=== PATIENT | female | born 1975 | race Caucasian/White ===

== ENCOUNTER 2019-02-05 13:34 | Emergency (ER) | payer OTHER ==
[2019-02-05 13:42] VITALS: TEMP 98.8
[2019-02-05] MEDS ORDERED: ONDANSETRON 4 MG/2 ML VIAL IVP STA (13:51)
[2019-02-05] MEDS ORDERED: SODIUM CHLORIDE 0.9% 1,000 ML IV STA (13:51)
--- NOTE | 2019-02-05 13:52 | ED ---
General Adult HPI - General Source: patient, EMS, RN notes reviewed Mode of arrival: EMS Limitations: no limitations <Chapincito Duenas - Last Filed: 02/05/19 16:46> <Bill Cleaning - Last Filed: 02/05/19 21:33> - General Chief complaint: Abdominal Pain Stated complaint: Abd Pain Time Seen by Provider: 02/05/19 13:51 - History of Present Illness Initial comments: 43-year-old female with a past medical history of Crohn's disease, diverticulitis, pancreatitis, alcoholic cirrhosis, borderline personality disorder presents to the emergency department for abdominal pain. This started this morning. Patient is also having nausea and vomiting. Patient states bowel movements are normal. Denies diarrhea. Patient is currently at [place] for heroin and alcohol. Denies any fevers or chills. states this pain feels like a cramping pain and only Ativan helps with her pain. Patient has no other complaints at this time including shortness of breath, chest pain, headache, or visual changes. (Chapincito Duenas) - Related Data Home Medications Medication Instructions Recorded Confirmed Acetaminophen Tab [Tylenol Tab] 650 mg PO Q4H PRN 02/05/19 02/05/19 Chlorpheniramine Maleate 4 mg PO Q4H PRN 02/05/19 02/05/19 [Chlor-Trimeton] Escitalopram [Lexapro] 5 mg PO DAILY@0602/05/19 02/05/19 Ibuprofen [Motrin] 600 mg PO Q6H PRN 02/05/19 02/05/19 Multivitamins, Thera [Multivitamin 1 tab PO DAILY 02/05/19 02/05/19 (formulary)] Nicotine 21Mg/24Hr Patch [Habitrol] 1 patch TRANSDERM DAILY@0630 02/05/19 02/05/19 Omeprazole [PriLOSEC] 20 mg PO DAILY@0600 02/05/19 02/05/19 Thiamine [Vitamin B-1] 100 mg PO DAILY 02/05/19 02/05/19 guaiFENesin SYRUP 100MG/5ML 200 mg PO Q4H PRN 02/05/19 02/05/19 [Robitussin] Previous Rx's Medication Instructions Recorded Pantoprazole Sodium [Protonix] 20 mg PO DAILY #14 tablet. 02/05/19 Allergies Allergy/AdvReac Type Severity Reaction Status Date / Time bee venom protein (honey bee) Allergy Unknown Verified 02/05/19 18:49 lithium [[place]] Allergy Unknown Verified 02/05/19 18:49 Review of Systems ROS Other: All systems not noted in ROS Statement are negative. <Chapincito Duenas - Last Filed: 02/05/19 16:46> ROS Other: All systems not noted in ROS Statement are negative. <Bill Cleaning - Last Filed: 02/05/19 21:33> ROS Statement: Those systems with pertinent positive or pertinent negative responses have been documented in the HPI. Past Medical History Additional Past Medical History / Comment(s): border line personality disorder. Pancreatitis, Diverticulitis, Alcoholic Cirrhosis, Crohn's Disease History of Any Multi-Drug Resistant Organisms: None Reported Past Surgical History: Appendectomy, Bowel Resection Smoking Status: Current every day smoker Past Alcohol Use History: None Reported Past Drug Use History: Heroin, Marijuana <Chapincito Duenas - Last Filed: 02/05/19 16:46> General Exam Limitations: no limitations General appearance: alert, in no apparent distress Head exam: Present: atraumatic, normocephalic, normal inspection <Chapincito Duenas - Last Filed: 02/05/19 16:46> Course <Chapincito Duenas - Last Filed: 02/05/19 16:46> <Bill Cleaning - Last Filed: 02/05/19 21:33> Vital Signs 02/05/19 02/05/19 02/05/19 13:37 15:44 18:32 Temperature 98.8 F Pulse Rate 64 60 71 Respiratory 18 16 18 Rate Blood Pressure 133/84 123/90 133/91 O2 Sat by Pulse 98 99 100 Oximetry - Reevaluation(s) Reevaluation #1: 02/05/19 16:48 Report is stuck and dictated mode. I have called CT multiple times. They are working on report. (Chapincito Duenas) Reevaluation #2: 02/05/19 19:22 I did personally examine the patient she is had pain since 3 AM this morning the epigastrium. She's had episodes nausea vomiting. She is reported to have self-induced vomiting as per staff witnessing these events. Lab work is unremarkable x-rays/CAT scan shows evidence of possible hemorrhagic cyst on the right ultrasound shows similar findings however flow could not be verified due to pain. On examination the patient is not tender on exam in the suprapubic right or left lower quadrant area. It is strictly epigastric. He does states she's had pain like this before with her gastritis and with her ulcers. A trial of further medication will be given. The exam is consistent with gastritis/epigastric pain. (Bill Cleaning) Medical Decision Making - Lab Data Result diagrams: 02/05/19 14:00 02/05/19 14:00 <Chapincito Duenas - Last Filed: 02/05/19 16:46> - Lab Data Result diagrams: 02/05/19 14:00 02/05/19 14:00 <Bill Cleaning - Last Filed: 02/05/19 21:33> - Medical Decision Making Age was endorsed to me at shift change pending ultrasound. Ultrasound showed evidence of a hemorrhagic cyst the differential does include torsion due to the inability vascular evaluation patient has no clinical indicators for this. She did interrogate complete resolution of her pain after medications were rendered. She will be discharged. The presentation is consistent with gastritis. (Bill Cleaning) - Lab Data Lab Results 02/05/19 02/05/19 02/05/19 Range/Units 14:00 14:00 14:00 WBC 14.5 H (3.8-10.6) k/uL RBC 4.81 (3.80-5.40) m/uL Hgb 14.5 (11.4-16.0) gm/dL Hct 43.4 (34.0-46.0) % MCV 90.3 (80.0-100.0) fL MCH 30.2 (25.0-35.0) pg MCHC 33.5 (31.0-37.0) g/dL RDW 15.6 H (11.5-15.5) % Plt Count 318 (150-450) k/uL Neutrophils % 79 % Lymphocytes % 14 % Monocytes % 4 % Eosinophils % 1 % Basophils % 0 % Neutrophils # 11.5 H (1.3-7.7) k/uL Lymphocytes # 2.1 (1.0-4.8) k/uL Monocytes # 0.5 (0-1.0) k/uL Eosinophils # 0.2 (0-0.7) k/uL Basophils # 0.1 (0-0.2) k/uL Sodium 143 (137-145) mmol/L Potassium 4.1 (3.5-5.1) mmol/L Chloride 108 H (98-107) mmol/L Carbon Dioxide 21 L (22-30) mmol/L Anion Gap 14 mmol/L BUN 14 (7-17) mg/dL Creatinine 0.88 (0.52-1.04) mg/dL Est GFR (CKD-EPI)AfAm >90 (>60 ml/min/1.73 sqM) Est GFR (CKD-EPI)NonAf 82 (>60 ml/min/1.73 sqM) Glucose 125 H (74-99) mg/dL Calcium 10.3 H (8.4-10.2) mg/dL Magnesium 2.1 (1.6-2.3) mg/dL Total Bilirubin 0.7 (0.2-1.3) mg/dL AST 27 (14-36) U/L ALT 15 (9-52) U/L Alkaline Phosphatase 107 (38-126) U/L Total Protein 8.1 (6.3-8.2) g/dL Albumin 4.7 (3.5-5.0) g/dL Amylase 89 (30-110) U/L Lipase 146 (23-300) U/L Urine Color Urine Appearance (Clear) Urine pH (5.0-8.0) Ur Specific [place] (1.001-1.035) Urine Protein (Negative) Urine Glucose (UA) (Negative) Urine Ketones (Negative) Urine Blood (Negative) Urine Nitrite (Negative) Urine Bilirubin (Negative) Urine Urobilinogen (<2.0) mg/dL Ur Leukocyte Esterase (Negative) Urine RBC (0-5) /hpf Urine WBC (0-5) /hpf Ur Squamous Epith Cells (0-4) /hpf Urine Bacteria (None) /hpf Urine Mucus (None) /hpf Urine HCG, Qual Not Detected (Not Detectd) 02/05/19 Range/Units 14:00 WBC (3.8-10.6) k/uL RBC (3.80-5.40) m/uL Hgb (11.4-16.0) gm/dL Hct (34.0-46.0) % MCV (80.0-100.0) fL MCH (25.0-35.0) pg MCHC (31.0-37.0) g/dL RDW (11.5-15.5) % Plt Count (150-450) k/uL Neutrophils % % Lymphocytes % % Monocytes % % Eosinophils % % Basophils % % Neutrophils # (1.3-7.7) k/uL Lymphocytes # (1.0-4.8) k/uL Monocytes # (0-1.0) k/uL Eosinophils # (0-0.7) k/uL Basophils # (0-0.2) k/uL Sodium (137-145) mmol/L Potassium (3.5-5.1) mmol/L Chloride (98-107) mmol/L Carbon Dioxide (22-30) mmol/L Anion Gap mmol/L BUN (7-17) mg/dL Creatinine (0.52-1.04) mg/dL Est GFR (CKD-EPI)AfAm (>60 ml/min/1.73 sqM) Est GFR (CKD-EPI)NonAf (>60 ml/min/1.73 sqM) Glucose (74-99) mg/dL Calcium (8.4-10.2) mg/dL Magnesium (1.6-2.3) mg/dL Total Bilirubin (0.2-1.3) mg/dL AST (14-36) U/L ALT (9-52) U/L Alkaline Phosphatase (38-126) U/L Total Protein (6.3-8.2) g/dL Albumin (3.5-5.0) g/dL Amylase (30-110) U/L Lipase (23-300) U/L Urine Color Yellow Urine Appearance Clear (Clear) Urine pH 6.0 (5.0-8.0) Ur Specific [place] 1.028 (1.001-1.035) Urine Protein Trace H (Negative) Urine Glucose (UA) Negative (Negative) Urine Ketones Trace H (Negative) Urine Blood Negative (Negative) Urine Nitrite Negative (Negative) Urine Bilirubin Negative (Negative) Urine Urobilinogen <2.0 (<2.0) mg/dL Ur Leukocyte Esterase Moderate H (Negative) Urine RBC 3 (0-5) /hpf Urine WBC 1 (0-5) /hpf Ur Squamous Epith Cells 1 (0-4) /hpf Urine Bacteria Rare H (None) /hpf Urine Mucus Few H (None) /hpf Urine HCG, Qual (Not Detectd) Disposition <Chapincito Duenas - Last Filed: 02/05/19 16:46> Is patient prescribed a controlled substance at d/c from ED?: No <Bill Cleaning - Last Filed: 02/05/19 21:33> Clinical Impression: Acute gastritis, Abdominal pain Disposition: HOME SELF-CARE Condition: Good Instructions (If sedation given, give patient instructions): Abdominal Pain (ED), Gastritis (ED) Prescriptions: Pantoprazole Sodium [Protonix] 20 mg PO DAILY #14 tablet.dr Referrals: None,Stated [Primary Care Provider] - 1-2 days
[2019-02-05 14:20] LABS: Basophils # (A) 0.1 k/uL (0-0.2); Basophils % (A) 0 %; Eosinophils # (A) 0.2 k/uL (0-0.7); Eosinophils % (A) 1 %; HCT 43.4 % (34.0-46.0); HGB 14.5 gm/dL (11.4-16.0); Lymphocytes # (A) 2.1 k/uL (1.0-4.8); Lymphocytes % (A) 14 %; MCH 30.2 pg (25.0-35.0); MCHC 33.5 g/dL (31.0-37.0); MCV 90.3 fL (80.0-100.0); Mean Platelet Volume 6.8; Monocytes # (A) 0.5 k/uL (0-1.0); Monocytes % (A) 4 %; Neutrophils # (A) 11.5 k/uL (1.3-7.7); Neutrophils % (A) 79 %; Platelet Count 318 k/uL (150-450); RBC 4.81 m/uL (3.80-5.40); RDW 15.6 % (11.5-15.5); WBC 14.5 k/uL (3.8-10.6)
[2019-02-05 14:26] LABS: ALT 15 U/L (9-52); AST 27 U/L (14-36); African American GFR (CKD) >90 (>60 ml/min/1.73 sqM); Albumin 4.7 g/dL (3.5-5.0); Alkaline Phosphatase 107 U/L (38-126); Amylase 89 U/L (30-110); Anion Gap 14 mmol/L; Blood Urea Nitrogen 14 mg/dL (7-17); Calcium 10.3 mg/dL (8.4-10.2); Carbon Dioxide 21 mmol/L (22-30); Chloride 108 mmol/L (98-107); Glucose 125 mg/dL (74-99); Magnesium 2.1 mg/dL (1.6-2.3); Potassium 4.1 mmol/L (3.5-5.1); Sodium 143 mmol/L (137-145); Total Bilirubin 0.7 mg/dL (0.2-1.3); Total Protein 8.1 g/dL (6.3-8.2)
[2019-02-05 14:29] LABS: Appearance,Urine Clear (Clear); Bacteria,Urine Rare /hpf; Bilirubin,Urine Negative (Negative); Blood,Urine Negative (Negative); Color,Urine Yellow; Glucose,Urine (UA) Negative (Negative); Ketones,Urine Trace (Negative); Leukocyte Esterase,Urine Moderate (Negative); Mucus,Urine Few /hpf; Nitrite,Urine Negative (Negative); Protein,Urine Trace (Negative); RBC,Urine 3 /hpf (0-5); Specific Gravity,Urine 1.028 (1.001-1.035); Squamous Epithelial Cell,Urine 1 /hpf (0-4); Urobilinogen,Urine <2.0 mg/dL (<2.0); WBC,Urine 1 /hpf (0-5)
[2019-02-05] MEDS ORDERED: KETOROLAC 30 MG/ML 1 ML VIAL IVP STA (14:32)
[2019-02-05] MEDS ORDERED: METOCLOPRAMIDE 5 MG/ML 2 ML VIAL IVP STA ×2 (15:20→16:59)
[2019-02-05] MEDS ORDERED: diphenhydrAMINE 50 MG/ML 1 ML VIAL IVP STA (15:21)
[2019-02-05] MEDS ORDERED: DICYCLOMINE 10 MG/ML 2 ML AMP IM STA (15:49)
[2019-02-05] MEDS ORDERED: FAMOTIDINE 20 MG/2 ML VIAL IV STA (17:00)
[2019-02-05 18:33] VITALS: BP 133/91; PULSE 71; RESP 18
[2019-02-05] MEDS ORDERED: LORazepam 2 MG/ML INJ IV STA ×2 (19:21→21:03)
[2019-02-05] MEDS ORDERED: HALOPERIDOL LACTATE 5 MG/ML 1 ML VIAL IVP STA (19:21)
[2019-02-05] MEDS ORDERED: MAG HYDROX/AL HYDROX/SIMETH 30 ML, HYOSCYAMINE ELIXIR 10 ML, CIMETIDINE HCL 300 MG, LID... PO STA ×4 (19:21)
--- NOTE | 2019-02-05 21:51 | US ---
EXAMINATION TYPE: US transvaginal DATE OF EXAM: 02/05/2019 COMPARISON: NONE CLINICAL HISTORY: Pain, CT finding. Right pelvic pain, N/V, recent CT, irregular cycles TECHNIQUE: Transvaginal ER exam Date of LMP: 4 months ago EXAM MEASUREMENTS: Uterus: 5.9 x 2.9 x 3.0 cm Endometrial Stripe: 0.3 cm Right Ovary: 4.5 x 3.4 x 4.3 cm Left Ovary: not seen Difficult and limited study due to patient in a lot of pain, vomiting during exam, constantly movin g and fidgeting 1. Uterus: Retroverted 2. Endometrium: Appears within normal limits measuring 3 mm in width. 3. Right Ovary: Enlarged measuring 4.5 x 3.4 x 4.3 cm (volume 34.8 mL). The ovary is predominantly h ypoechoic with strands of internal reticulation visualized. Vascular flow could not be obtained due t o pain. 4. Left Ovary: Not seen 5. Bilateral Adnexa: Within normal limits 6. Posterior cul-de-sac: Within normal limits Cervical nabothian cysts noted incidentally. IMPRESSION: Enlarged right ovary with morphologic changes favoring hemorrhagic cyst however blood flow could not be obtained due to patient discomfort therefore torsion cannot necessarily be excluded and should be correlated clinically.
--- NOTE | 2019-02-05 21:51 | CT ---
EXAMINATION TYPE: CT abdomen pelvis wo con DATE OF EXAM: 02/05/2019 COMPARISON: [facility] 01/01/2014 HISTORY: epigastric pain, nausea, vomiting CT DLP: 767.8 mGycm Automated exposure control for dose reduction was used. TECHNIQUE: Helical acquisition of images was performed from the lung bases through the pelvis. No in travenous contrast. FINDINGS: The liver, spleen, pancreas, gallbladder, adrenal glands are within normal limits given noncontrast t echnique. No renal or ureteral calculi. No hydronephrosis. Decompressed urinary bladder. Retroverted uterus. Enlarged, high attenuating right ovary measuring approximately 3.8 x 3.7 x 6.2 cm (TR, AP, CC) with surrounding fat stranding. Normal CT appearance of left ovary. No sizable free flu id. No dilated bowel or free air. Appendix is not visualized and there are right lower quadrant clips adj acent to the cecum which may represent post appendectomy change. No osseous destructive lesion. Scattered benign bone islands. IMPRESSION: Enlarged right ovary with surrounding inflammatory change and internal hemorrhagic components. Differ ential considerations include hemorrhagic cyst, ovarian torsion, as well as ectopic . Correl ation with beta-hCG is recommended in addition to pelvic ultrasound.
== END 2019-02-05 21:53 | disposition home or self-care (01) ==
LOC: EC 13:34
DX: K29.00 Acute gastritis without bleeding (principal); F10.10 Alcohol abuse, uncomplicated; F11.10 Opioid abuse, uncomplicated; N83.201 Unspecified ovarian cyst, right side; F17.200 Nicotine dependence, unspecified, uncomplicated; Z88.8 Allergy status to other drugs, medicaments and biological substances; Z91.030 Bee allergy status; Z79.899 Other long term (current) drug therapy; Z87.19 Personal history of other diseases of the digestive system; Z90.49 Acquired absence of other specified parts of digestive tract
CPT/HCPCS: 36415; 80053; 82150; 83690; 83735; 85025; 81001; 81025; 87086; 76830; 74176; 99284; 96374; 96375 ×6; 96376 ×2; 96361 ×4; 96372; J2060; J1200; J0500; J1630; J2765; J2405; J1885

== ENCOUNTER 2019-02-06 16:30 | Observation (INO) | payer OTHER ==
[2019-02-06] MEDS ORDERED: NITROGLYCERIN SL TABS 0.4 MG TAB SUBLINGUAL STA (17:13)
[2019-02-06] MEDS ORDERED: SODIUM CHLORIDE 0.9% 1,000 ML IV STA (17:13)
[2019-02-06] MEDS ORDERED: ASPIRIN 81 MG PO STA (17:13)
--- NOTE | 2019-02-06 17:33 | ED ---
Chest Pain HPI <Bill Cleaning - Last Filed: 02/06/19 21:57> - General Source: patient, EMS Mode of arrival: EMS Limitations: no limitations <Gaurav Chandler - Last Filed: 02/06/19 22:11> - General Chief Complaint: Chest Pain Stated Complaint: Chest Pain Time Seen by Provider: 02/06/19 17:05 - History of Present Illness Initial Comments: Patient is a 43-year-old female presenting to emergency Department with a chief complaint chest pain. Patient reports a gradual onset of a dull substernal chest pain approximately one hour ago and does not radiate anywhere. Patient reports mild diaphoresis after the incident occurred but now feels cold. Patient does report mild lightheadedness but no dizziness. Vision also reports she feels generalized weakness. With no nausea or vomiting or diarrhea. Patient also reports epigastric pain but states that is due to her esophageal irritation caused by haital hernia. Patient denies taking medication to alleviate the symptoms. Patient is a smoker and does have a family history of cardiovascular disease. Patient does not have hypertension, hyperchol esterolemia, or other establish cardiovascular conditions. (Gaurav Chandler) - Related Data Home Medications Medication Instructions Recorded Confirmed Acetaminophen Tab [Tylenol Tab] 650 mg PO Q4H PRN 02/05/19 02/06/19 Chlorpheniramine Maleate 4 mg PO Q4H PRN 02/05/19 02/06/19 [Chlor-Trimeton] Escitalopram [Lexapro] 5 mg PO DAILY@59902/05/19 02/06/19 Ibuprofen [Motrin] 600 mg PO Q6H PRN 02/05/19 02/06/19 Multivitamins, Thera [Multivitamin 1 tab PO DAILY 02/05/19 02/06/19 (formulary)] Nicotine 21Mg/24Hr Patch [Habitrol] 1 patch TRANSDERM DAILY@62902/05/19 02/06/19 Omeprazole [PriLOSEC] 20 mg PO DAILY@59902/05/19 02/06/19 Thiamine [Vitamin B-1] 100 mg PO DAILY 02/05/19 02/06/19 guaiFENesin SYRUP 100MG/5ML 200 mg PO Q4H PRN 02/05/19 02/06/19 [Robitussin] Calcium/Magnesium/Zinc 2 tab PO TID 02/06/19 02/06/19 [Jmxtdro-Nkthenitt-Urgn Tablet] Mirtazapine [Remeron] 15 mg PO HS 02/06/19 02/06/19 Mylanta 30 ml PO Q4H PRN 02/06/19 02/06/19 Ondansetron HCl [Zofran] 8 mg PO Q6H PRN 02/06/19 02/06/19 Ondansetron [Zofran] 4 mg IM Q6H PRN 02/06/19 02/06/19 Tigan 200mg 200 mg IM Q6H PRN 02/06/19 02/06/19 Tigan 300mg Suppo 300 mg RECTAL Q6H PRN 02/06/19 02/06/19 Trimethobenzamide [Tigan] 300 mg PO Q6H PRN 02/06/19 02/06/19 Allergies Allergy/AdvReac Type Severity Reaction Status Date / Time bee venom protein (honey bee) Allergy Unknown Verified 02/06/19 16:47 lithium [[place]] Allergy Unknown Verified 02/06/19 16:47 Review of Systems ROS Other: All systems not noted in ROS Statement are negative. <Bill Cleaning - Last Filed: 02/06/19 21:57> ROS Other: All systems not noted in ROS Statement are negative. <Gaurav Chandler - Last Filed: 02/06/19 22:11> ROS Statement: Those systems with pertinent positive or pertinent negative responses have been documented in the HPI. EKG Findings - EKG Comments: EKG Findings:: Normal sinus rhythm, right axis deviation. Particular a 61, W[place] interval 132, QRS duration 96, QT/QTc 434, 436,P-R-T axes 66 131 43 <Gaurav Chandler - Last Filed: 02/06/19 22:11> Past Medical History Additional Past Medical History / Comment(s): border line personality disorder. Pancreatitis, Diverticulitis, Alcoholic Cirrhosis, Crohn's Disease History of Any Multi-Drug Resistant Organisms: None Reported Past Surgical History: Appendectomy, Bowel Resection Past Psychological History: No Psychological Hx Reported Smoking Status: Current every day smoker Past Alcohol Use History: None Reported Past Drug Use History: Heroin, Marijuana <Gaurav Chandler - Last Filed: 02/06/19 22:11> General Exam Limitations: no limitations General appearance: alert, in no apparent distress Head exam: Present: atraumatic, normocephalic, normal inspection Eye exam: Present: normal appearance, PERRL, EOMI Pupils: Present: normal accommodation ENT exam: Present: normal exam, mucous membranes moist, normal external ear exam Neck exam: Present: normal inspection, full ROM. Absent: tenderness Respiratory exam: Present: normal lung sounds bilaterally. Absent: wheezes Cardiovascular Exam: Present: regular rate, normal rhythm, normal heart sounds GI/Abdominal exam: Present: soft, tenderness (Epigastric) Extremities exam: Present: normal inspection, full ROM Back exam: Present: normal inspection, full ROM Neurological exam: Present: alert, oriented X3 Psychiatric exam: Present: normal affect, normal mood Skin exam: Present: warm, intact, normal color <Gaurav Chandler - Last Filed: 02/06/19 22:11> Course <Bill Cleaning - Last Filed: 02/06/19 21:57> Vital Signs 02/06/19 02/06/19 02/06/19 16:33 17:25 18:24 Temperature 99 F Pulse Rate 63 74 Respiratory 16 18 32 H Rate Blood Pressure 148/95 116/97 O2 Sat by Pulse 98 97 Oximetry 02/06/19 19:26 Temperature Pulse Rate 64 Respiratory 18 Rate Blood Pressure 139/97 O2 Sat by Pulse 95 Oximetry - Reevaluation(s) Reevaluation #1: 02/06/19 21:57 PA supervision: I did review the case and did discuss the findings with the PA. Patient will be admitted I did discuss case with Dr. Prado. (Bill Cleaning) Chest Pain MDM - Core Measures AMI Core Measures Followed: No Cap Core Measures Followed: No - Differential Diagnosis AMI, ACS - [place] Criteria Clinical Symptoms of DVT: (0) No No Alternative Diagnosis: (0) No Immobilization of Surgery in Previous 4 Weeks: (0) No Previous DVT/PE: (0) No Hemoptysis: (0) No Malignancy: (0) No <Gaurav Chandler - Last Filed: 02/06/19 22:11> - [facility] Patient is a 43-year-old female presenting to emergency Department with a chief complaint of chest pain. Patient reports a gradual onset of pain approximately 1 hour prior to arrival. Patient reports the pain is substernal and does not radiate anywhere. Patient reports the pain is nonexertional she does report mild shortness of breath. Patient is a smoker and is currently undergoing a recovery treatment for alcohol and heroin abuse. Chest x-ray indicates atelectasis at the right lung base. EKG is unremarkable. Troponin is not mariano vated. CBC and CMP are unremarkable. Patient began to have a panic attack. Patient was also complaining of epigastric pain with states that is due to her hiatal hernia. Patient patient attempted self induced emesis. Patient was very loud in the emergency department. Patient was given 1 mg of Ativan initially and prior to admission to observation was given a second dose of Ativan. Patient reports improvement in her anxiety. Patient will be admitted for serial troponin. Patient has a heart score of 4. I counseled the patient for smoking cessation for greater than 3 minutes. Case discussed with Dr. Cleaning. Medical physician is Dr. Bonner. Cardiology consulted. (Gaurav Chandler) Disposition <Bill Cleaning - Last Filed: 02/06/19 21:57> Is patient prescribed a controlled substance at d/c from ED?: No Time of Disposition: 22:11 <Gaurav Chandler - Last Filed: 02/06/19 22:11> Clinical Impression: Chest pain Disposition: ADMITTED IP TO THIS HOSP Condition: Stable Instructions (If sedation given, give patient instructions): Chest Pain (ED) Additional Instructions: Patient will be admitted. Referrals: None,Stated [Primary Care Provider] - 1-2 days
[2019-02-06 17:44] LABS: Basophils % (A) 0 %; Eosinophils # (A) 0.1 k/uL (0-0.7); Eosinophils % (A) 1 %; HCT 42.2 % (34.0-46.0); Lymphocytes % (A) 24 %; MCHC 33.3 g/dL (31.0-37.0); Mean Platelet Volume 6.9; Monocytes # (A) 0.5 k/uL (0-1.0); Monocytes % (A) 6 %; Neutrophils # (A) 5.4 k/uL (1.3-7.7); Neutrophils % (A) 66 %; Platelet Count 283 k/uL (150-450); RBC 4.69 m/uL (3.80-5.40); RDW 15.9 % (11.5-15.5); WBC 8.1 k/uL (3.8-10.6)
[2019-02-06] MEDS ORDERED: DICYCLOMINE 10 MG/ML 2 ML AMP IM STA (17:49)
[2019-02-06 17:52] LABS: ALT 18 U/L (9-52); AST 38 U/L (14-36); African American GFR (CKD) >90 (>60 ml/min/1.73 sqM); Albumin 4.6 g/dL (3.5-5.0); Alkaline Phosphatase 101 U/L (38-126); Anion Gap 12 mmol/L; Blood Urea Nitrogen 13 mg/dL (7-17); Carbon Dioxide 21 mmol/L (22-30); Chloride 105 mmol/L (98-107); Glucose 111 mg/dL (74-99); Magnesium 2.2 mg/dL (1.6-2.3); Potassium 4.2 mmol/L (3.5-5.1); Sodium 138 mmol/L (137-145); Total Bilirubin 0.8 mg/dL (0.2-1.3); Total Protein 7.8 g/dL (6.3-8.2)
[2019-02-06 17:54] LABS: Partial Thromboplastin Time 24.4 sec (22.0-30.0); Prothrombin Time 10.5 sec (9.0-12.0)
[2019-02-06] MEDS ORDERED: LORazepam 2 MG/ML INJ IV STA ×2 (18:46→22:02)
[2019-02-06 19:27] VITALS: RESP 18
--- NOTE | 2019-02-06 19:39 | XR ---
EXAMINATION TYPE: XR chest 2V DATE OF EXAM: 02/06/2019 COMPARISON: None HISTORY: 43-year-old female with chest pain TECHNIQUE: AP and lateral views FINDINGS: The heart is normal size. Aorta and pulmonary vasculature within normal limits. Strandy atelectasis r ight base. No consolidation or pleural effusion otherwise seen. IMPRESSION: Right basilar strandy atelectasis. No acute process otherwise seen.
[2019-02-06] MEDS ORDERED: MAG HYDROX/AL HYDROX/SIMETH 30 ML, HYOSCYAMINE ELIXIR 10 ML, CIMETIDINE HCL 300 MG, LID... PO STA ×4 (20:33)
[2019-02-06] MEDS ORDERED: KETOROLAC 30 MG/ML 1 ML VIAL IVP PRN (21:58)
[2019-02-06] MEDS ORDERED: LORazepam 0.5 MG TAB PO PRN (21:58)
[2019-02-06] MEDS ORDERED: NALOXONE 0.4 MG/ML 1 ML VIAL IV PRN (21:58)
[2019-02-06] MEDS ORDERED: SODIUM CHLORIDE 0.9% 1,000 ML IV SCH (22:00)
[2019-02-06] MEDS ORDERED: LORazepam 1 MG TAB PO PRN (22:04)
[2019-02-06] MEDS ORDERED: MAG HYDROX/AL HYDROX/SIMETH 30 ML CUP PO PRN (22:25)
[2019-02-06] MEDS: PANTOPRAZOLE 40 MG/10 ML VIAL IVP SCH (23:14)
[2019-02-06 23:17] LABS: Amylase 74 U/L (30-110)
[2019-02-06] MEDS: MORPHINE SULFATE 4 MG/ML SYRINGE IV PRN (23:20)
[2019-02-06] MEDS ORDERED: TRIMETHOBENZAMIDE 300 MG CAP PO PRN (23:41)
--- NOTE | 2019-02-06 23:59 | P.HPIM ---
History of Present Illness H&P Date: 02/06/19 Chief Complaint: Chest pain and epigastric pain 43-year-old female with history of anxiety and panic disorder Patient presented to the hospital twice to the ED first and was complaining of abdominal pain this time was complaining of chest pain. Patient was abusive to staff and the ED very loud screaming and yelling. She reports that she has some epigastric pain and chest pain described as substernal dull pain nonradiating 9 out of 10 in severity burning in nature sometimes feels like epigastric in nature associated with nausea and vomiting at times with coffee ground material However at home this a.m. she hyperventilated and felt tingly and numb fell. Did not bump her head did not lose consciousness. She reports that her bowel movements have some red streaks denies any fissures but reports history of Crohn's disease. Otherwise denies any diaphoresis or shortness of breath In the ED initial workup was negative Patient admitted for atypical chest pain to rule out ACS patient has family history of premature CAD in her father patient is also a smoker however she's cutting back EKG in the ED showed normal sinus rhythm Review of Systems Pertinent positives as noted in HPI. All other systems were reviewed and are negative Past Medical History Additional Past Medical History / Comment(s): border line personality disorder. Pancreatitis, Diverticulitis, Alcoholic Cirrhosis, Crohn's Disease History of Any Multi-Drug Resistant Organisms: None Reported Past Surgical History: Appendectomy, Bowel Resection Past Psychological History: No Psychological Hx Reported Smoking Status: Current every day smoker Past Alcohol Use History: None Reported Past Drug Use History: Heroin, Marijuana - Past Family History Mother Family Medical History: No Reported History Father Additional Family Medical History / Comment(s): of suicide Medications and Allergies Home Medications Medication Instructions Recorded Confirmed Type Acetaminophen Tab [Tylenol Tab] 650 mg PO Q4H PRN 02/05/19 02/06/19 History Chlorpheniramine Maleate 4 mg PO Q4H PRN 02/05/19 02/06/19 History [Chlor-Trimeton] Escitalopram [Lexapro] 5 mg PO DAILY@0600 02/05/19 02/06/19 History Ibuprofen [Motrin] 600 mg PO Q6H PRN 02/05/19 02/06/19 History Multivitamins, Thera [Multivitamin 1 tab PO DAILY 02/05/19 02/06/19 History (formulary)] Nicotine 21Mg/24Hr Patch [Habitrol] 1 patch TRANSDERM DAILY@62902/05/1906/26 History Omeprazole [PriLOSEC] 20 mg PO DAILY@0600 02/05/19 02/06/19 History Thiamine [Vitamin B-1] 100 mg PO DAILY 02/05/19 02/06/19 History guaiFENesin SYRUP 100MG/5ML 200 mg PO Q4H PRN 02/05/19 02/06/19 History [Robitussin] Calcium/Magnesium/Zinc 2 tab PO TID 02/06/19 02/06/19 History [Nrqizhi-Tqhgxcxyl-Odpj Tablet] LORazepam [Ativan] 2 mg PO TID 02/06/19 02/06/19 History Mirtazapine [Remeron] 30 mg PO HS 02/06/19 02/06/19 History Mylanta 30 ml PO Q4H PRN 02/06/19 02/06/19 History Ondansetron HCl [Zofran] 8 mg PO Q6H PRN 02/06/19 02/06/19 History Ondansetron [Zofran] 4 mg IM Q6H PRN 02/06/19 02/06/19 History Tigan 200mg 200 mg IM Q6H PRN 02/06/19 02/06/19 History Tigan 300mg Suppo 300 mg RECTAL Q6H PRN 02/06/19 02/06/19 History Trimethobenzamide [Tigan] 300 mg PO Q6H PRN 02/06/19 02/06/19 History cloNIDine HCL [Catapres] 0.2 mg PO BID 02/06/19 02/06/19 History Allergies Allergy/AdvReac Type Severity Reaction Status Date / Time bee venom protein (honey bee) Allergy Unknown Verified 02/06/19 22:55 lithium [[place]] Allergy Unknown Verified 02/06/19 22:55 Physical Exam Vitals: Vital Signs Temp Pulse Resp BP Pulse Ox 02/06/19 19:26 64 18 139/97 95 02/06/19 18:24 74 32 H 116/97 97 02/06/19 17:25 18 02/06/19 16:33 99 F 63 16 148/95 98 Intake and Output 02/06/19 02/06/19 02/06/19 06:59 14:59 22:59 Other: Weight 86.183 kg Constitutional: No acute distress, conversant, pleasant, patient showed no vascular tumor she threw up with some coffee ground. Eyes: Anicteric sclerae, moist conjunctiva, no lid-lag Pupils equal round reactive to light ENMT: NC/AT Oropharynx clear, no erythema, exudates Neck: Supple, FROM, no masses, or JVD No carotid bruits No thyromegaly Lungs: Clear to auscultation Clear to percussion Normal respiratory effort, no accessory muscle use Cardiovascular: Heart regular in rate and rhythm, No murmurs, gallops, or rubs No peripheral edema Abdominal: Soft Tenderness to deep palpation and percussion of the epigastric region, no guarding, rebound or rigidity Abdomen moving with respiration Normoactive bowel sounds No hepatomegaly, No splenomegaly No palpable mass No abdominal wall hernia noted Skin: Normal temperature, tone, texture, turgor No induration No subcutaneous nodules No rash, lesions No ulcers Extremities: No digital cyanosis No clubbing Pedal pulses intact and symmetrical Radial pulses intact and symmetrical No calf tenderness Psychiatric: Alert and oriented to person, place and time Appropriate affect fair judgment Neuro Muscles Strength 5/5 in all 4 extremities Sensation to light touch grossly present throughout Cranial nerves II-XII grossly intact No focal sensory deficits Lymphatics: no palpable cervical or supraclavicular , or inguinal lymph nodes Results CBC & Chem 7: 02/06/19 17:20 02/06/19 17:20 Labs: Abnormal Lab Results - Last 24 Hours (Table) 02/06/19 02/06/19 Range/Units 17:20 17:20 RDW 15.9 H (11.5-15.5) % Carbon Dioxide 21 L (22-30) mmol/L Glucose 111 H (74-99) mg/dL AST 38 H (14-36) U/L Assessment and Plan Assessment: 43-year-old female with past medical history of panic disorder and anxiety peptic ulcer disease admitted under observation with anticipated length of stay less than 2 midnight for chest pain to rule out acute coronary syndrome Plan: Chest pain rule out acute coronary syndrome Age and given aspirin Pain control Trend troponins Cardiac monitoring Cardiac consult Initial EKG sinus rhythm Anxiety and panic disorder Continue Lexapro, patient reports noncompliance and has resumed the medication just 10 days ago Ativan when necessary History of peptic ulcer epigastric pain Protonix twice a day Monitor for any evidence of GI bleeding, and the ED patient's self-induced emesis per ER report however when she showed me the bassinet she had small amounts of dark coffee-ground material GI consult Lipase and amylase were negative DVT prophylaxis mechanical CODE STATUS full code Discussed with: Patient, ER, RN Anticipated length of stay less than than [address]: Home A total of 60 minutes was spent on the care of this complex patient more than 50% of the time was spent in counseling and care coordination.
[2019-02-07] MEDS: cloNIDine HCL 0.1 MG TAB PO SCH ×2 (00:58→10:28)
[2019-02-07] MEDS: LORazepam 1 MG TAB PO PRN ×3 (02:47→16:10)
[2019-02-07] MEDS: MORPHINE SULFATE 4 MG/ML SYRINGE IV PRN ×3 (02:47→10:33)
[2019-02-07] MEDS ORDERED: ESCITALOPRAM 5 MG TAB PO SCH (06:00)
[2019-02-07 07:17] VITALS: TEMP 98.1
[2019-02-07] MEDS: PANTOPRAZOLE 40 MG/10 ML VIAL IVP SCH (08:36)
[2019-02-07 10:31] VITALS: BP 108/70; PULSE 75
--- NOTE | 2019-02-07 12:08 | CONS ---
CONSULTATION REASON FOR CONSULTATION: Severe epigastric pain and chest pain. HISTORY OF PRESENT ILLNESS: The patient is a 43-year-old pleasant white female who came into the emergency room from [facility] complaining of severe epigastric pain associated with chest pain that started about 2 days ago. The patient has chronic epigastric pain of several years duration. In fact, she has been to a mercury purifier in [facility], had an upper endoscopy done early part of this year and was diagnosed with severe ulcerative esophagitis. Since then, she has been maintained on Protonix 40 mg daily and her symptoms are gradually improving. However, she still experiences epigastric discomfort almost on a daily basis, worse after eating, mostly burning in nature and occasionally very sharp and crampy in nature. She denies any nausea, vomiting, came to the emergency room. Cardiology was consulted. Cardiac workup so far has been negative. This morning she still has some pain, but feeling better on a clear liquid diet, tolerating well. She denies any rectal bleeding or melena. No recent weight loss. She does have prior history of peptic ulcer disease, but denies any recent NSAID use. Currently undergoing rehab at [facility] for the last 2 weeks for alcohol and intravenous drug use and she has been clean for 2 weeks. PAST MEDICAL HISTORY: Significant for anxiety depression, disorder, history of heavy alcoholism and gastroesophageal reflux disease. MEDICATIONS: At home include Tylenol, Motrin, Lexapro, multivitamin, Prilosec, vitamin B1, Ativan, Remeron, Zofran, Tigan, clonidine. ALLERGIES: To LITHIUM. SOCIAL HISTORY: Intravenous drug use for 10 years which she quit 2 weeks ago. Alcohol use as mentioned above. REVIEW OF SYSTEMS: CARDIOPULMONARY: No chest pain, shortness of breath. GENITOURINARY: No dysuria or hematuria. MUSCULOSKELETAL: Unremarkable. SKIN: Unremarkable. ENDOCRINE: Unremarkable. PSYCHIATRIC: Anxiety, depression. ENT/VISION: Unremarkable. CONSTITUTIONAL: No recent weight loss. No fever, chills, night sweats. PHYSICAL EXAMINATION: She appears comfortable, no apparent distress. Vital signs are stable. Blood pressure is 112/86, pulse is 61, temperature 98.2. HEENT: Examination unremarkable. conjunctivae pink. Sclerae anicteric. Oral cavity no lesions. NECK: No JVD or lymph node enlargement. CHEST: Clear to auscultation. HEART: Regular rate and rhythm. ABDOMEN: Soft. There is mild tenderness in the epigastric area. Bowel sounds are positive. No organomegaly. EXTREMITIES: No pedal edema. SKIN: No rashes. NEUROLOGIC: Alert and oriented x3. No focal deficits. CT of the abdomen and pelvis done 2 days ago during her earlier visit to the emergency room showed enlarged right ovary with surrounding inflammatory changes consistent with a hemorrhagic ovarian cyst, but otherwise the rest of the examination was unremarkable. IMPRESSION: Chronic epigastric pain of more than 10 years duration with worsening symptoms in the last 2 days associated with atypical chest pain. Cardiology evaluated the patient. No obvious cardiac etiology identified. She does have longstanding history of gastroesophageal reflux disease and had an upper endoscopy done by GI in [facility] earlier part of this year and was diagnosed with severe reflux esophagitis and since then has been maintained on Protonix 40 mg daily. Now has worsening symptoms and symptoms are more consistent with exacerbation of gastroesophageal reflux disease symptoms. Also has prior history of peptic ulcer disease. CT of the abdomen showed normal-appearing pancreas and liver as well as gallbladder. She does have one ovarian cyst noted. RECOMMENDATIONS: 1. Increase the Protonix to 40 mg twice daily. 2. Advance diet as tolerated. 3. No plans on any endoscopy intervention during this hospitalization. Thank you for this consultation. We will follow the patient closely during the hospital stay. She was advised to follow with her local GI following discharge from the hospital. PRAKASH / JAYJAY: [id number] /
--- NOTE | 2019-02-07 17:28 | P.DS ---
Providers Date of admission: 02/06/19 21:57 Expected date of discharge: 02/07/19 Attending physician: Ashutosh Bonner MD Consults: 02/06/19 21:58 Consult Physician Stat Consulting Provider: Mekhi Gutierrez Consult Reason/Comments: [place] Rule out Do you want consulting provider notified?: Yes 02/07/19 00:01 Consult Physician Routine Consulting Provider: Stanley Alarcon Consult Reason/Comments: coffee ground vomiting, peptic ulcer disease, Do you want consulting provider notified?: Yes, Notify in am Primary care physician: Stated None - Discharge Diagnosis(es) (1) Atypical chest pain Current Visit: Yes Status: Acute (2) GERD with esophagitis Current Visit: Yes Status: Acute (3) Abdominal pain Current Visit: No Status: Acute Hospital Course: Patient is a 43-year-old that was admitted for atypical chest pain after presenting with severe epigastric pain. Cardiac workup was negative although her troponins are negative at less than 0.012, EKG also showed sinus mechanism without any suggestion of acute ischemia. Patient had a history of GERD with severe ulcerative erosive esophagitis in that was likely attributed to her presenting symptoms. The patient was started on morphine and Bentyl for pain, the patient was seen and cleared by cardiology and her Protonix dosage was doubled to 40 mg by mouth twice a day. 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 This discharge process took approximately 30 minutes. Focused exam Cardiovascular: Regular rate and rhythm no rubs or gallops GI: Soft nontender nondistended, normal bowel sounds in all 4 quadrants Patient Condition at Discharge: Stable Plan - Discharge Summary New Discharge Prescriptions: New Pantoprazole [Protonix] 40 mg PO AC-BID #60 tablet. Continue Ibuprofen [Motrin] 600 mg PO Q6H PRN PRN Reason: Pain Chlorpheniramine Maleate [Chlor-Trimeton] 4 mg PO Q4H PRN PRN Reason: Allergy Symptoms Escitalopram [Lexapro] 5 mg PO DAILY@0600 Acetaminophen Tab [Tylenol] 650 mg PO Q4H PRN PRN Reason: Fever And/ Or Pain Thiamine [Vitamin B-1] 100 mg PO DAILY Multivitamins, Thera [Multivitamin (formulary)] 1 tab PO DAILY guaiFENesin SYRUP 100MG/5ML [Robitussin] 200 mg PO Q4H PRN PRN Reason: Cough Mirtazapine [Remeron] 30 mg PO HS Tigan 200mg 200 mg IM Q6H PRN PRN Reason: Nausea Calcium/Magnesium/Zinc [Gnbuaes-Sqyhiefyd-Iqtv Tablet] 2 tab PO TID Trimethobenzamide [Tigan] 300 mg PO Q6H PRN PRN Reason: Nausea Tigan 300mg Suppo 300 mg RECTAL Q6H PRN PRN Reason: Nausea Ondansetron [Zofran] 4 mg IM Q6H PRN PRN Reason: Nausea Ondansetron HCl [Zofran] 8 mg PO Q6H PRN PRN Reason: Nausea Mylanta 30 ml PO Q4H PRN PRN Reason: Indigestion cloNIDine HCL [Catapres] 0.2 mg PO BID LORazepam [Ativan] 2 mg PO TID Nicotine 21Mg/24Hr Patch [Habitrol] 1 patch TRANSDERM DAILY@0630 #30 patch Discontinued Omeprazole [PriLOSEC] 20 mg PO DAILY@0600 Discharge Medication List Acetaminophen Tab [Tylenol] 650 mg PO Q4H PRN 02/05/19 [History] Chlorpheniramine Maleate [Chlor-Trimeton] 4 mg PO Q4H PRN 02/05/19 [History] Escitalopram [Lexapro] 5 mg PO DAILY@0600 02/05/19 [History] Ibuprofen [Motrin] 600 mg PO Q6H PRN 02/05/19 [History] Multivitamins, Thera [Multivitamin (formulary)] 1 tab PO DAILY 02/05/19 [History] Thiamine [Vitamin B-1] 100 mg PO DAILY 02/05/19 [History] guaiFENesin SYRUP 100MG/5ML [Robitussin] 200 mg PO Q4H PRN 02/05/19 [History] Calcium/Magnesium/Zinc [Gtnqpwy-Ggykbpqps-Kknw Tablet] 2 tab PO TID 02/06/19 [History] LORazepam [Ativan] 2 mg PO TID 02/06/19 [History] Mirtazapine [Remeron] 30 mg PO HS 02/06/19 [History] Mylanta 30 ml PO Q4H PRN 02/06/19 [History] Ondansetron HCl [Zofran] 8 mg PO Q6H PRN 02/06/19 [History] Ondansetron [Zofran] 4 mg IM Q6H PRN 02/06/19 [History] Tigan 200mg 200 mg IM Q6H PRN 02/06/19 [History] Tigan 300mg Suppo 300 mg RECTAL Q6H PRN 02/06/19 [History] Trimethobenzamide [Tigan] 300 mg PO Q6H PRN 02/06/19 [History] cloNIDine HCL [Catapres] 0.2 mg PO BID 02/06/19 [History] Nicotine 21Mg/24Hr Patch [Habitrol] 1 patch TRANSDERM DAILY@0630 #30 patch 02/07/19 [Rx] Pantoprazole [Protonix] 40 mg PO AC-BID #60 tablet. 02/07/19 [Rx] Follow up Appointment(s)/Referral(s): None,Stated [Primary Care Provider] - 1-2 days Patient Instructions/Handouts: Chest Pain (ED) Activity/Diet/Wound Care/Special Instructions: Follow up with cardiology after completion of rehab care
[2019-02-07] MEDS ORDERED: PANTOPRAZOLE 40 MG TABLET PO SCH (17:30)
--- NOTE | 2019-02-07 20:32 | CONS ---
CONSULTATION Mrs. María Elena Vickers is a 43-year-old lady who came here from [place] where she was receiving therapy for her drug addiction as well as alcohol addiction. She developed chest pain which she described as being sharp in nature, but the pain lasted only a few seconds on and off. Prior to that she had abdominal discomfort mostly in the epigastric area and then also in the lower abdomen. She had a transvaginal ultrasound. There was a question of some ovarian cysts. Quality of the pain really is mostly in the epigastric area and the abdominal area. She does not have any chest pain to suggest angina. However, during the conversation she insisted that she has pain in the chest, also it is sharp in nature. The quality of pain is very atypical. Also, today she has troponin levels that were performed. They are all unremarkable. EKG is unremarkable. She is resting comfortably without symptoms at the time of my evaluation. PAST MEDICAL HISTORY: Remarkable for substance abuse. She also has a history of some borderline personality according to the note. She does not have any documented history of myocardial infarction or CVA. ALLERGIES: She is allergic to LITHIUM. MEDICATIONS: Include chlorpheniramine maleate, ibuprofen, Lexapro, nicotine patch. She takes a Tigan and she also takes Zofran for her emesis. The patient does not have any hypertension or hyperlipidemia. She does smoke. At the time of my evaluation, she is resting comfortably without any significant symptoms. PHYSICAL EXAMINATION: Blood pressure is 110/70, pulse rate is 70 per minute, regular HEENT unremarkable. Fundus was not examined by me. Neck is supple. No JVD. I do not hear a carotid bruit. There is no thyromegaly Heart exam reveals S1, S2 heard normally in all areas without a rub, murmur or gallop. Lungs are clear. Abdomen is soft, nontender. Lower extremities reveal normal pulses. No edema. Central nervous system is normal. EKG reveals sinus mechanism, no acute changes. IMPRESSION: 1. Atypical chest pain. 2. History of substance abuse, in [place], transferred from there. RECOMMENDATION: I am recommending that she can be discharged home after her workup for abdominal pain is complete. She does not have any symptoms to suggest acute ischemic syndrome or CAD. She can have outpatient stress test performed at a later date. She should follow up in [place] with her primary care physician who is in [place], [place]. The patient can be discharged and I discussed my thoughts in detail with the patient. MMODL / IJN: [id number] /
== END 2019-02-07 17:45 | disposition home or self-care (01) ==
LOC: EC 16:30 → 1SOBS 21:57
PROVIDERS: ADMIT Internal Medicine; ATTEND Internal Medicine
DX: R07.2 Precordial pain (principal); K21.0 Gastro-esophageal reflux disease with esophagitis; R61 Generalized hyperhidrosis; R42 Dizziness and giddiness; R06.02 Shortness of breath; R11.2 Nausea with vomiting, unspecified; R53.1 Weakness; R20.2 Paresthesia of skin; R20.0 Anesthesia of skin; N83.201 Unspecified ovarian cyst, right side; R19.5 Other fecal abnormalities; G89.29 Other chronic pain; F17.200 Nicotine dependence, unspecified, uncomplicated; K44.9 Diaphragmatic hernia without obstruction or gangrene; F60.3 Borderline personality disorder; F41.0 Panic disorder [episodic paroxysmal anxiety]; F41.9 Anxiety disorder, unspecified; F11.11 Opioid abuse, in remission; F10.11 Alcohol abuse, in remission; K70.30 Alcoholic cirrhosis of liver without ascites; K50.90 Crohn's disease, unspecified, without complications; Z79.899 Other long term (current) drug therapy; Z79.1 Long term (current) use of non-steroidal anti-inflammatories (NSAID); Z87.11 Personal history of peptic ulcer disease; Z91.14 Patient's other noncompliance with medication regimen; Z88.8 Allergy status to other drugs, medicaments and biological substances; Z91.030 Bee allergy status; Z90.49 Acquired absence of other specified parts of digestive tract; Z82.49 Family history of ischemic heart disease and other diseases of the circulatory system; Z81.8 Family history of other mental and behavioral disorders; W19.XXXA Unspecified fall, initial encounter; Y92.009 Unspecified place in unspecified non-institutional (private) residence as the place of occurrence of the external cause
CPT/HCPCS: 96361 ×2; 96376 ×2; 96372; 96374; 96375; 99285; 36415; 93005; 80053; 82150; 83690; 83735; 84484 ×2; 85025; 85610; 85730; 71046; G0378 ×2; J2060; J2270 ×2; J0500; C9113 ×2